=== PATIENT | male | born 1955 | race Caucasian/White ===

== ENCOUNTER 2017-02-07 13:42 | Day surgery (SDC) | payer MEDICARE, BC ==
[~2017-02-07 13:42] MED LIST: APRACLONIDINE HCL 50 DROP BTL LEFTEYE PRN; PHENYLEPHRINE HCL 50 DROP BTL LEFTEYE PRN; TROPICAMIDE 150 DROP BTL LEFTEYE PRN
[2017-02-07 14:17] VITALS: BP 152/85
== END 2017-02-07 13:43 | disposition home or self-care (01) ==
LOC: AMB 13:42
PROVIDERS: ATTEND Ophthalmology
PROC: 085K3ZZ Destruction of Left Lens, Percutaneous Approach (ICD-10-PCS; principal; 2017-02-07 14:10)
DX: H26.40 Unspecified secondary cataract (principal); Z68.29 Body mass index [BMI] 29.0-29.9, adult